=== PATIENT | male | born 1990 ===

== ENCOUNTER 2016-06-20 16:02 | Emergency (ER) | payer SELFPAY ==
[2016-06-20 16:06] VITALS: BMI 25.5
[2016-06-20 16:08] VITALS: BP 146/78; PULSE 72; TEMP 99
--- NOTE | 2016-06-20 16:19 | ED PDOC ---
Arrival/HPI - General Chief Complaint: Back Pain Time Seen by Provider: 06/20/16 16:06 Historian: Patient - History of Present Illness Narrative History of Present Illness (Text): 06/20/16 16:16 25yo male with no PMHx who present with complaint of left sided neck pain x 3days. States pain started while doing push up. He did not take any medication for pain. Pain is only with lateral movement of his neck to the left. Denies focal weakness, trauma, any other complaint. Past Medical History - Provider Review Nursing Documentation Reviewed: Yes - Psychiatric Hx Substance Use: No Family/Social History - Physician Review Nursing Documentation Reviewed: Yes Family/Social History: Unknown Family HX Smoking Status: Current Some Days Smoker Hx Alcohol Use: No Hx Substance Use: No Allergies/Home Meds Allergies/Adverse Reactions: Allergies ibuprofen [From Motrin] Allergy (Verified 06/20/16 16:06) RASH Review of Systems - Physician Review All systems were reviewed & negative as marked: Yes - Review of Systems Constitutional: Normal Eyes: Normal ENT: Normal Respiratory: Normal Cardiovascular: Normal Gastrointestinal: Normal Genitourinary Male: Normal Musculoskeletal: Neck Pain Skin: Normal Neurological: Normal Endocrine: Normal Hemo/Lymphatic: Normal Psychiatric: Normal Physical Exam Vital Signs Reviewed: Yes Vital Signs Temp Pulse Resp BP Pulse Ox 06/20/16 16:41 18 98 06/20/16 16:06 99 F 72 16 146/78 97 Temperature: Afebrile Blood Pressure: Normal Pulse: Regular Respiratory Rate: Normal Appearance: Positive for: Well-Appearing, Non-Toxic, Comfortable Pain Distress: None Mental Status: Positive for: Alert and Oriented X 3 - Systems Exam Head: Present: Atraumatic, Normocephalic Pupils: Present: PERRL Extroacular Muscles: Present: EOMI Conjunctiva: Present: Normal Mouth: Present: Moist Mucous Membranes Neck: Present: Paraspinal Tenderness (Left sided). No: Normal Range of Motion ( Pain with lateral bend to the left), MIDLINE TENDERNESS Respiratory/Chest: Present: Clear to Auscultation, Good Air Exchange. No: Respiratory Distress, Accessory Muscle Use Cardiovascular: Present: Regular Rate and Rhythm, Normal S1, S2. No: Murmurs Abdomen: Present: Normal Bowel Sounds. No: Tenderness, Distention, Peritoneal Signs Back: Present: Normal Inspection Upper Extremity: Present: Normal Inspection. No: Cyanosis, Edema Lower Extremity: Present: Normal Inspection. No: Edema Neurological: Present: GCS=15, CN II-XII Intact, Speech Normal Skin: Present: Warm, Dry, Normal Color. No: Rashes Psychiatric: Present: Alert, Oriented x 3, Normal Insight, Normal Concentration Medical Decision Making ED Course and Treatment: 06/20/16 22:27 PT had FROM with pain on lateral bending to the left. His pain is likely MS. He denied trauma and have no neurological deficit. He was DC home with analgesic and muscle relaxer. Referred to the clinic. TRT ED for any new or worsening symptoms. - Medication Orders Current Medication Orders: Discontinued Medications Cyclobenzaprine HCl (Flexeril) 5 mg PO STAT STA Stop: 06/20/16 16:17 Last Admin: 06/20/16 16:30 Dose: 5 MG Tramadol HCl (Ultram) 50 mg PO STAT STA Stop: 06/20/16 16:16 Last Admin: 06/20/16 16:30 Dose: 50 MG Disposition/Present on Arrival - Present on Arrival Any Indicators Present on Arrival: No History of DVT/PE: No History of Uncontrolled Diabetes: No Urinary Catheter: No History of Decub. Ulcer: No History Surgical Site Infection Following: None - Disposition Have Diagnosis and Disposition been Completed?: Yes Diagnosis: Neck pain, musculoskeletal Disposition: HOME/ ROUTINE Disposition Time: 16:20 Patient Plan: Discharge Condition: STABLE Discharge Instructions (ExitCare): Cervical Sprain (ED) Additional Instructions: Apply warm compress and shower to area Follow up with your Doctor/Clinic Return to ED for any new or worsening symptoms Prescriptions: Cyclobenzaprine [Cyclobenzaprine HCl] 10 mg PO TID #10 tab traMADol [Ultram] 50 mg PO TID #10 tab Referrals: [facility] at [facility] [place]] - Follow up with primary Forms: WORK NOTE
[2016-06-20 16:42] VITALS: RESP 18; O2SAT 98
== END 2016-06-20 16:42 | disposition home or self-care (01) ==
LOC: ED 16:02
DX: M54.2 Cervicalgia (principal)

== ENCOUNTER 2017-10-28 13:26 | Emergency (ER) | payer MEDICAID, OTHER ==
[2017-10-28 13:27] VITALS: BMI 25.5
--- NOTE | 2017-10-28 13:32 | ED PDOC ---
Arrival/HPI - General Historian: Patient - Critical Care Critical Care Minutes: 30 minutes - History of Present Illness Time/Duration: < week Symptom Onset: Gradual Symptom Course: Worsening <Logan Medina - Last Filed: 10/28/17 16:26> <Florian Dailey - Last Filed: 10/28/17 16:44> - General Time Seen by Provider: 10/28/17 13:28 - History of Present Illness Narrative History of Present Illness (Text): 10/28/17 14:32 Patient is a 26 year old male with no PMH presenting to the ED with a skin rash. Patient states that on Saturday he experienced a fever, headache, shortness of breath, muscle aches, cough, and an uncomfortable feeling when he urinates. These symptoms resolved on its own the next day but a rash appeared all over his body. He came in today stating that the rash is spreading to his whole body and to his face. The rash is itchy and painful. On examination today, patient denies of headache, eye pain or discharge, shortness of breath, chest pain, abdominal pain, or other urinary symptoms. (Logan Medina) Past Medical History - Psychiatric Hx Substance Use: No <Logan Medina - Last Filed: 10/28/17 16:26> Family/Social History Smoking Status: Current Some Days Smoker Hx Alcohol Use: No Hx Substance Use: No <Logan Medina - Last Filed: 10/28/17 16:26> Allergies/Home Meds <Logan Medina - Last Filed: 10/28/17 16:26> <Florian Dailey - Last Filed: 10/28/17 16:44> Allergies/Adverse Reactions: Allergies ibuprofen [From Motrin] Allergy (Verified 06/20/16 16:06) RASH Review of Systems - Review of Systems Constitutional: Normal. absent: Fevers, Night Sweats Eyes: Normal. absent: Vision Changes, Eye Pain ENT: Normal, Sore Throat, Other Respiratory: Normal, Cough, Other (complains of non-productive cough). absent: SOB Cardiovascular: Normal. absent: Chest Pain Gastrointestinal: Normal. absent: Abdominal Pain, Diarrhea Musculoskeletal: Normal Skin: Rash, Pruritis, Other Neurological: Normal Psychiatric: Normal <Logan Medina Last Filed: 10/28/17 16:26> Physical Exam Vital Signs Reviewed: Yes Temperature: Afebrile Blood Pressure: Hypertensive Pulse: Regular Respiratory Rate: Normal Appearance: Positive for: Well-Appearing Pain Distress: None Mental Status: Positive for: Alert and Oriented X 3 - Systems Exam Head: Present: Atraumatic, Normocephalic Pupils: Present: PERRL Extroacular Muscles: Present: EOMI Conjunctiva: Present: Normal Mouth: Present: Moist Mucous Membranes Pharnyx: Present: ERYTHEMA. No: EXUDATE Neck: Present: Normal Range of Motion. No: Lymphadenopathy Respiratory/Chest: Present: Clear to Auscultation. No: Respiratory Distress, Accessory Muscle Use Cardiovascular: Present: Regular Rate and Rhythm, Normal S1, S2. No: Murmurs Abdomen: Present: Normal Bowel Sounds. No: Tenderness Upper Extremity: Present: Normal Inspection Lower Extremity: Present: Normal Inspection Neurological: Present: GCS=15, CN II-XII Intact, Speech Normal Skin: Present: Warm, Dry, Rashes, Normal Color, Other (rash present on upper and lower extremities, back, and face) Lymphatic: No: Cervical Adenopathy Psychiatric: Present: Alert, Oriented x 3, Normal Insight, Normal Concentration <Logan Medina - Last Filed: 10/28/17 16:26> Vital Signs Temp Pulse Resp BP Pulse Ox 10/28/17 13:51 99.5 F 67 18 164/90 H 99 Medical Decision Making Reassessment Condition: Re-examined <Logan Medina - Last Filed: 10/28/17 16:26> <Florian Dailey - Last Filed: 10/28/17 16:44> ED Course and Treatment: 10/28/17 13:32 Impression: Patient is a 26 year old presenting to the ED with a rash that started 2 days ago. Differential Diagnoses Include But is Not Limited To: - Allergic reaction - Reactive arthritis - Tickborne illness Plan: - CBC - CMP - Chest Xray - Chlamydia IgG - UA - Toradol - Methylprednisolone Progress note: 10/28/17 14:45 - Patient reassessed with attending. Patient is not complaining of any other symptoms besides his rash. 10/28/17 16:00 - Chest xray was unremarkable, patient afebrile, WBC within normal limits, and UA was normal. - Repeat BP was 130/90. - Told patient that we will call him if pending blood work comes back positive. - He is given return protocol and advised to follow up at [facility]. He demonstrates understanding. Scripts given. Patient is stable for discharge. (Logan Medina) 10/28/17 16:43 Patient is a 26 year old male who presents to the emergency department for further evaluation of rash that developed 2 days ago. In agreement with resident note, which includes further HPI details. Patient was seen and evaluated with resident, came up with plan and treatment together. (Florian Dailey) - Lab Interpretations Lab Results: 10/28/17 14:20 10/28/17 14:20 Lab Results 10/28/17 14:50: Urine Color Yellow, Urine Appearance Clear, Urine pH 6.0, Ur Specific [place] 1.025, Urine Protein Trace H, Urine Glucose (UA) Negative, Urine Ketones Trace H, Urine Blood Negative, Urine Nitrate Negative, Urine Bilirubin Negative, Urine Urobilinogen 0.2, Ur Leukocyte Esterase Negative, Urine RBC 0 - 2, Urine WBC 1 - 3, Ur Epithelial Cells None, Urine Bacteria Many 10/28/17 14:20: Sodium 144, Potassium 4.0, Chloride 102, Carbon Dioxide 28, Anion Gap 18, BUN 14, Creatinine 0.8, Est GFR ( Amer) > 60, Est GFR (Non- Af Amer) > 60, Random Glucose 103, Calcium 9.4, Total Bilirubin 0.5, AST 40, ALT 43, Alkaline Phosphatase 78, Total Protein 8.2, Albumin 4.7, Globulin 3.5, Albumin/Globulin Ratio 1.3 10/28/17 14:20: WBC 6.7, RBC 5.08, Hgb 15.4, Hct 44.0, MCV 86.6, MCH 30.3, MCHC 35.0, RDW 12.5, Plt Count 207, MPV 9.6, Gran % 70.5 H, Lymph % (Auto) 20.9 L, [place] % (Auto) 7.0 H, Eos % (Auto) 1.3 L, Baso % (Auto) 0.3, Gran # 4.71, Lymph # (Auto) 1.4, [place] # (Auto) 0.5, Eos # (Auto) 0.1, Baso # (Auto) 0.02 - RAD Interpretation Radiology Orders: 10/28/17 14:29 CXR (PA/LAT) [CHEST TWO VIEWS (PA/LAT)] [RAD] Stat - Medication Orders Current Medication Orders: Discontinued Medications Ketorolac Tromethamine (Toradol) 60 mg IM STAT STA Stop: 10/28/17 15:53 Last Admin: 10/28/17 16:21 Dose: Not Given Non-Admin Reason: Patient Refused Disposition/Present on Arrival - Present on Arrival Any Indicators Present on Arrival: No History of DVT/PE: No History of Uncontrolled Diabetes: No Urinary Catheter: No History Surgical Site Infection Following: None - Disposition Have Diagnosis and Disposition been Completed?: Yes <Logan Medina - Last Filed: 10/28/17 16:26> - Present on Arrival Any Indicators Present on Arrival: No - Disposition Have Diagnosis and Disposition been Completed?: Yes Disposition Time: 15:53 Patient Plan: Discharge <Florian Dailey - Last Filed: 10/28/17 16:44> - Disposition Diagnosis: Rash Disposition: HOME/ ROUTINE Patient Problems: Current Active Problems Problem Status Onset Rash Acute Condition: STABLE Discharge Instructions (ExitCare): Skin Rash (DC) Prescriptions: Methylprednisolone [Medrol Dose Pack (21 tabs)] 4 mg PO DAILY #21 mg Referrals: Funmi Ohara MD [Medical Doctor] - Follow up with primary [facility] at [facility] [place] [Outside] - Follow up with primary Forms: WORK NOTE
[2017-10-28 14:07] VITALS: BP 164/90; PULSE 67; RESP 18; TEMP 99.5; O2SAT 99
[2017-10-28 14:31] LABS: BASO # 0.02 K/mm3 (0.0-2.0); BASO % 0.3 % (0.0-3.0); EOS # 0.1 (0.0-0.7); EOS % 1.3 % (1.5-5.0); GRAN # 4.71 (1.4-6.5); GRAN % 70.5 % (50.0-68.0); HEMOGLOBIN 15.4 g/dL (14.0-18.0); LYMPH # 1.4 (1.2-3.4); LYMPH % 20.9 % (22.0-35.0); MEAN CELL VOLUME 86.6 fl (80.0-105.0); MEAN CORPUSCULAR HEMOGLOBIN 30.3 pg (25.0-35.0); MEAN PLATELET VOLUME 9.6 fl (7.0-11.0); MONO # 0.5 (0.1-0.6); RBC 5.08 10^6/uL (3.5-6.1); RED CELL DISTRIBUTION WIDTH 12.5 % (11.5-14.5); WHITE BLOOD COUNT 6.7 10^3/ul (4.5-11.0)
[2017-10-28 14:41] LABS: ALB/GLOB RATIO 1.3 (1.1-1.8); ALBUMIN 4.7 g/dL (3.0-4.8); ALT/SGPT 43 U/L (7-56); AST/SGOT 40 U/L (17-59); BLOOD UREA NITROGEN 14 mg/dL (7-21); CALCIUM 9.4 mg/dL (8.4-10.5); GFR NON-AFRICAN AMERICAN > 60
[2017-10-28 15:08] LABS: URINE BILIRUBIN NEGATIVE (NEGATIVE); URINE BLOOD NEGATIVE (NEGATIVE); URINE GLUCOSE (UA) NEGATIVE (NEGATIVE); URINE LEUKOCYTE ESTERASE NEGATIVE Leu/uL (NEGATIVE); URINE PROTEIN TRACE mg/dL (<30 mg/dL); URINE UROBILINOGEN 0.2 E.U./dL (<1 E.U./dL)
[2017-10-28 15:10] LABS: URINE APPEARANCE CLEAR (CLEAR); URINE COLOR YELLOW (YELLOW)
[2017-10-28 15:13] LABS: URINE BACTERIA MANY (NEG); URINE RBC 0 - 2 /hpf (0-2)
--- NOTE | 2017-10-28 15:52 | RAD ---
Date of service: 10/28/2017 HISTORY: Cough and fevers COMPARISON: No prior. TECHNIQUE: Chest PA and lateral FINDINGS: LUNGS: No active pulmonary disease. PLEURA: No significant pleural effusion identified. No pneumothorax apparent. CARDIOVASCULAR: Normal. OSSEOUS STRUCTURES: No significant abnormalities. VISUALIZED UPPER ABDOMEN: Normal. OTHER FINDINGS: None. IMPRESSION: No active disease.
== END 2017-10-28 16:20 | disposition home or self-care (01) ==
LOC: ED 13:26
DX: R21 Rash and other nonspecific skin eruption (principal)